=== PATIENT | female | born 1965 ===

== ENCOUNTER 2017-12-07 05:44 | Emergency (ER) | payer OTHER ==
[2017-12-07 06:04] VITALS: RESP 16
[2017-12-07] MEDS ORDERED: Sodium Chloride 0.9% 1,000 ML IV STA (06:34)
[2017-12-07] MEDS ORDERED: Morphine 4 MG/ML VIAL IVP ONE (06:34)
[2017-12-07] MEDS ORDERED: Morphine 4 MG/ML VIAL ONE (06:48)
[2017-12-07 06:49] LABS: SQUAMOUS EPITHIAL 18 /hpf (0-5); URINE BACTERIA RARE (<OCC); URINE BILIRUBIN NEGATIVE (NEGATIVE); URINE BLOOD NEGATIVE (NEGATIVE); URINE CLARITY CLOUDY (Clear); URINE COLOR YELLOW (YELLOW); URINE GLUCOSE (UA) NEG (Normal); URINE LEUKOCYTE ESTERASE TRACE Leu/uL (Negative); URINE PROTEIN 30 mg/dL (NEGATIVE); URINE UROBILINOGEN 0.2-1.0 mg/dL (0.2-1.0)
[2017-12-07 06:50] LABS: BASO % 0.6 % (0.0-2.0); EOS # 0.1 K/uL (0.0-0.7); EOS % 1.7 % (0.0-4.0); HEMOGLOBIN 14.3 g/dL (12.0-16.0); LYMPH # 1.8 K/uL (1.0-4.3); LYMPH % 29.7 % (20.0-40.0); MEAN CORPUSCULAR HEMOGLOBIN 28.8 pg (27.0-31.0); MEAN CORPUSCULAR HGB CONC 33.6 g/dL (33.0-37.0); MEAN PLATELET VOLUME 8.7 fl (7.2-11.7); MONO # 0.6 K/uL (0.0-0.8); MONO % 10.1 % (0.0-10.0); NEUT # 3.4 K/uL (1.8-7.0); NEUT % 57.9 % (50.0-75.0); NRBC % 0.6 % (0.0-0.0); RBC 4.95 Mil/uL (3.80-5.20); RED CELL DISTRIBUTION WIDTH 13.3 % (11.5-14.5); WHITE BLOOD COUNT 5.9 K/uL (4.8-10.8)
[2017-12-07 07:06] LABS: ALB/GLOB RATIO 1.1 (1.0-2.1); ALBUMIN 4.5 g/dL (3.5-5.0); ALT/SGPT 55 U/L (9-52); AST/SGOT 42 U/L (14-36); BLOOD UREA NITROGEN 11 mg/dl (7-17); CALCIUM 10.1 mg/dL (8.4-10.2); GFR AFRICAN-AMERICAN > 60; GFR NON-AFRICAN AMERICAN > 60; LIPASE 63 U/L (23-300)
--- NOTE | 2017-12-07 07:24 | ED PDOC ---
HPI: Abdomen Time Seen by Provider: 12/07/17 05:48 Chief Complaint (Nursing): Abdominal Pain Chief Complaint (Provider): abdominal pain History Per: Patient History/Exam Limitations: no limitations Onset/Duration Of Symptoms: Days (4x) Current Symptoms Are (Timing): Constant Pain Scale Rating Of: 10 Quality Of Discomfort: "Pain" Additional Complaint(s): 52 y/o female with past medical history Fibroid presents to the ED complaining of constant abdominal pain onset 4 days ago. Reports the pain is radiating to her left lower back. She is pre-menstrual and has not experienced such pain in the past. Describes it 07/10. She took Tylenol without any relief. PMD: Provider [facility] Past Medical History Reviewed: Historical Data, Nursing Documentation, Vital Signs Vital Signs: Last Vital Signs Temp 97.6 F 12/07/17 05:59 Pulse 95 H 12/07/17 05:59 Resp 16 12/07/17 05:59 BP 151/96 H 12/07/17 05:59 Pulse Ox 98 12/07/17 07:26 - Medical History Other PMH: fibroma - Family History Family History: States: Unknown Family Hx - Social History Current smoker - smoking cessation education provided: No Alcohol: None Drugs: Denies - Allergies Allergies/Adverse Reactions: Allergies Allergy/AdvReac Type Severity Reaction Status Date / Time No Known Allergies Allergy Verified 12/07/17 05:59 Review of Systems ROS Statement: Except As Marked, All Systems Reviewed And Found Negative Gastrointestinal: Positive for: Abdominal Pain Physical Exam - Reviewed Nursing Documentation Reviewed: Yes Vital Signs Reviewed: Yes - Physical Exam Appears: Positive for: Well, Non-toxic, No Acute Distress Head Exam: Positive for: ATRAUMATIC, NORMAL INSPECTION, NORMOCEPHALIC Skin: Positive for: Normal Color, Warm, Dry Eye Exam: Positive for: EOMI, Normal appearance, PERRL ENT: Positive for: Normal ENT Inspection Neck: Positive for: Normal, Painless ROM, Supple. Negative for: Decreased ROM, Limited ROM Cardiovascular/Chest: Positive for: Regular Rate, Rhythm. Negative for: Murmur Respiratory: Positive for: Normal Breath Sounds. Negative for: Decreased Breath Sounds, Accessory Muscle Use, Wheezing Gastrointestinal/Abdominal: Positive for: Tenderness (lower abdomen), Mass ( firm palpable mass in lower abdomen) Back: Positive for: Normal Inspection. Negative for: L CVA Tenderness, R CVA Tenderness Extremity: Positive for: Normal ROM. Negative for: Tenderness, Pedal Edema, Deformity Neurologic/Psych: Positive for: Alert, Oriented (x3), Gait - Laboratory Results Result Diagrams: 12/07/17 06:47 12/07/17 06:47 - ECG O2 Sat by Pulse Oximetry: 98 (RA) Pulse Ox Interpretation: Normal Medical Decision Making Medical Decision Making: Time: 06:33 Initial Impression: 52 y/o female with lower abdominal pain and palpable mass in setting in known fibroid. Initial Plan: --CMP --Lipase --CBC --PTT --Prothrombin Time [COAG] --Morphine 4mg --Toradol 10mg --Normal Saline 1000 mls/hr --Heplock Insertion --Urinalysis --Transvaginal US --Reevaluation Time:07:00 Patient will be signed out to Dr. Canales by me pending US and reevaluation. Documented by Justin Billy acting as a scribe for Virgil Wu MD. All medical record entries made by the Scribe were at my direction and personally dictated by me. I have reviewed the chart and agree that the record accurately reflects my personal performance of the history, physical exam, medical decision making, and the department course for this patient. I have also personally directed, reviewed, and agree with the discharge instructions and disposition. Disposition - Disposition Forms: [employer] ([place] [employer])
[2017-12-07 07:40] LABS: PARTIAL THROMBOPLASTIN TIME 33.2 Seconds (25.6-37.1)
--- NOTE | 2017-12-07 09:40 | US ---
PROCEDURE: Pelvic ultrasound 12/07/2017 HISTORY: Lower abdominal pain, hx fibroids COMPARISON: None available. TECHNIQUE: Transvaginal sonographic evaluation of pelvis performed FINDINGS: UTERUS: Uterus is anteverted. Uterus is enlarged measuring approximately 14.5 x 9.8 x 3.3 cm. Multiple uterine fibroids are present. The largest exophytic -pedunculated fibroid arising from the fundal region measures approximately 8.1 x 3.5 x 6.6 cm. Second largest in the fundal/upper body measures approximately 6.5 x 6.8 x 5.1 cm. Air largest in the anterior body region measures approximately 6.1 x 5.5 x 4.7 cm. . At least two additional smaller fibroids are also present. ENDOMETRIUM: Endometrium is not delineated. CERVIX: No cervical abnormality identified. RIGHT OVARY: Right ovary not visualized LEFT OVARY: Left ovary not visualized FREE FLUID: No significant free fluid noted. OTHER FINDINGS: None. IMPRESSION: Enlarged fibroid uterus as described. The endometrium nor the right - left ovaries visualized on this study.
--- NOTE | 2017-12-07 13:09 | ED PDOC ---
- Laboratory Results Result Diagrams: 12/07/17 06:47 12/07/17 06:47 - ECG O2 Sat by Pulse Oximetry: 95 Medical Decision Making Medical Decision Making: Pelvis US shows large fibroid. will give followup to obstetrician and gynaecologist clinic Disposition Doctor Will See Patient In The: Office Counseled Patient/Family Regarding: Diagnosis, Need For Followup - Clinical Impression Clinical Impression: Fibroid uterus - POA Present On Arrival: None - Disposition [facility] [Outside] Disposition: Routine/Home Disposition Time: 12:15 Condition: STABLE Instructions: Uterine Fibroids Forms: [employer] (Sinhala) Print Language: FRISIAN
[2017-12-07 13:19] VITALS: BP 128/66; PULSE 84; TEMP 98; O2SAT 99
== END 2017-12-07 13:13 | disposition home or self-care (01) ==
LOC: H.ER 05:44
DX: D25.9 Leiomyoma of uterus, unspecified (principal)
CPT/HCPCS: 76830; 76856; 80053; 81003; 81025; 83690; 85025; 85610; 85730; 96361; 96374; 96375; 99284; J1885; J2270; J7040

== ENCOUNTER 2017-12-08 06:34 | Emergency (ER) | payer OTHER ==
[2017-12-08 06:49] VITALS: TEMP 97.5
--- NOTE | 2017-12-08 07:16 | ED PDOC ---
HPI: Abdomen Time Seen by Provider: 12/08/17 07:00 Chief Complaint (Nursing): Abdominal Pain Chief Complaint (Provider): Lower Abdominal Pain History Per: Patient History/Exam Limitations: no limitations Onset/Duration Of Symptoms: Days (x4) Outside of [place] travel?: No Current Symptoms Are (Timing): Still Present Severity: None Pain Scale Rating Of: 10 Quality Of Discomfort: "Pain" Associated Symptoms: Nausea. denies: Vomiting, Diarrhea, Urinary Symptoms (no dysuria) Exacerbating Factors: None Alleviating Factors: None Additional Complaint(s): 52 year old female presents to the ED complaining of lower abdominal pain associated with nausea x4 days. The patient reports that she was seen yesterday for the same symptoms and diagnosed with uterine fibroids. Denies vomiting, diarrhea, dysuria. Last Menstrual period: September 10 2017 PMD: Dr. Mcpherson Abnormal Vaginal Bleeding: No Last Menstral Period: September 10 Past Medical History Reviewed: Historical Data, Nursing Documentation, Vital Signs Vital Signs: Last Vital Signs Temp 97.5 F L 12/08/17 06:45 Pulse 67 12/08/17 08:00 Resp 20 12/08/17 08:00 BP 112/69 12/08/17 08:00 Pulse Ox 99 12/08/17 08:00 - Medical History PMH: No Chronic Diseases - Surgical History Surgical History: No Surg Hx - Family History Family History: States: Unknown Family Hx - Home Medications Home Medications: Ambulatory Orders Medication Instructions Recorded Naproxen [Naprosyn] 500 mg PO Q12H #20 tab 12/08/17 - Allergies Allergies/Adverse Reactions: Allergies Allergy/AdvReac Type Severity Reaction Status Date / Time No Known Allergies Allergy Verified 12/08/17 06:45 Review of Systems ROS Statement: Except As Marked, All Systems Reviewed And Found Negative Gastrointestinal: Positive for: Nausea, Abdominal Pain (lower). Negative for: Vomiting, Diarrhea Genitourinary Female: Negative for: Dysuria Physical Exam - Reviewed Nursing Documentation Reviewed: Yes Vital Signs Reviewed: Yes - Physical Exam Appears: Positive for: Non-toxic, No Acute Distress Head Exam: Positive for: ATRAUMATIC, NORMAL INSPECTION, NORMOCEPHALIC Skin: Positive for: Normal Color, Warm, Dry. Negative for: Rash Eye Exam: Positive for: Normal appearance, EOMI, PERRL ENT: Positive for: Normal ENT Inspection. Negative for: Nasal Congestion, Tonsillar Exudate Neck: Positive for: Normal, Painless ROM, Supple Cardiovascular/Chest: Positive for: Regular Rate, Rhythm, Chest Non Tender. Negative for: Murmur, Tachycardia Respiratory: Positive for: Normal Breath Sounds. Negative for: Rales, Rhonchi, Wheezing, Respiratory Distress Gastrointestinal/Abdominal: Positive for: Bowel Sounds, Soft, Tenderness ( Tenderness to lower quadrants bilaterally ). Negative for: Mass, Guarding, Rebound Back: Positive for: Normal Inspection. Negative for: L CVA Tenderness, R CVA Tenderness, Vertebral Tenderness Extremity: Positive for: Normal ROM (Full ROM to all extremities). Negative for : Tenderness, Deformity, Swelling Neurologic/Psych: Positive for: Alert, Oriented, Gait - Laboratory Results Result Diagrams: 12/08/17 07:40 12/08/17 07:40 - ECG O2 Sat by Pulse Oximetry: 100 (RA) Pulse Ox Interpretation: Normal - Progress Re-evaluation Time: 10:13 Condition: Improved Medical Decision Making Medical Decision Makin Initial Impression 52 year old female presenting with lower abdominal pain Initial plan: * Toradol 30mg IVP * Reevaluation Documented by Angela Nelson acting as a scribe for Amado Duffy MD. All medical record entries made by the Scribe were at my direction and personally dictated by me. I have reviewed the chart and agree that the record accurately reflects my personal performance of the history, physical exam, medical decision making, and the department course for this patient. I have also personally directed, reviewed, and agree with the discharge instructions and disposition. Disposition - Clinical Impression Clinical Impression: Fibroid uterus Counseled Patient/Family Regarding: Studies Performed, Diagnosis, Need For Followup, Rx Given - Disposition Referrals: [facility] [Outside] Disposition: Routine/Home Disposition Time: 10:13 Condition: FAIR Prescriptions: Naproxen [Naprosyn] 500 mg PO Q12H #20 tab Instructions: Uterine Fibroids Forms: [id number] (Georgian)
[2017-12-08 08:25] LABS: BASO % 0.5 % (0.0-2.0); EOS # 0.2 K/uL (0.0-0.7); EOS % 2.6 % (0.0-4.0); HEMOGLOBIN 14.8 g/dL (12.0-16.0); LYMPH # 2.4 K/uL (1.0-4.3); LYMPH % 37.9 % (20.0-40.0); MEAN CELL VOLUME 86.2 fl (81.0-99.0); MEAN CORPUSCULAR HGB CONC 33.7 g/dL (33.0-37.0); MEAN PLATELET VOLUME 9.4 fl (7.2-11.7); MONO # 0.6 K/uL (0.0-0.8); MONO % 9.3 % (0.0-10.0); NEUT # 3.2 K/uL (1.8-7.0); NEUT % 49.7 % (50.0-75.0); NRBC % 0.1 % (0.0-0.0); RBC 5.12 Mil/uL (3.80-5.20); RED CELL DISTRIBUTION WIDTH 13.2 % (11.5-14.5); WHITE BLOOD COUNT 6.4 K/uL (4.8-10.8)
[2017-12-08 08:33] LABS: ALB/GLOB RATIO 1.1 (1.0-2.1); ALBUMIN 4.9 g/dL (3.5-5.0); ALT/SGPT 60 U/L (9-52); AST/SGOT 44 U/L (14-36); BLOOD UREA NITROGEN 14 mg/dl (7-17); CALCIUM 10.3 mg/dL (8.4-10.2); GFR AFRICAN-AMERICAN > 60; GFR NON-AFRICAN AMERICAN > 60
[2017-12-08 10:52] VITALS: BP 111/85; PULSE 70; RESP 19; O2SAT 98
== END 2017-12-08 10:51 | disposition home or self-care (01) ==
LOC: H.ER 06:34
DX: D25.9 Leiomyoma of uterus, unspecified (principal)
CPT/HCPCS: 80053; 81025; 85025; 96374; 99283; J1885